=== PATIENT | female | born 2000 | race Caucasian/White ===

== ENCOUNTER 2023-11-20 10:29 | Emergency (ER) | payer MEDICAID, SELFPAY ==
[2023-11-20 10:34] VITALS: BP 152/95; PULSE 83; RESP 19; TEMP 36.1; O2SAT 98; BMI 33.9
[2023-11-20 12:39] VITALS: BP 162/92; PULSE 79; RESP 20; TEMP 36.6; O2SAT 98
--- NOTE | 2023-11-20 12:39 | ED.NAVMDI ---
HPI - Nausea/Vomiting/Diarrhea General Chief complaint: Abdominal Pain Stated complaint: Vomiting blood Time Seen by Provider: 11/20/23 13:10 Source: patient Mode of arrival: ambulatory Limitations: no limitations History of Present Illness HPI Narrative: Patient is a 23-year-old female presenting to the emergency department with complaint of diarrhea since Monday. Reports 4-5 episodes daily. Has had associated nausea but was not vomiting until this morning. Reports that she vomited after brushing her teeth this morning but it was clear fluid. States that she then went to work and drank some water and ate a banana and then vomited again which was food contents. States she vomited 1 additional time and it had a coffee-ground appearance and she became concerned. Denies fevers. Denies recent antibiotic use. Denies history prior abdominal surgeries. States that she recently moved here from [place] and does not have a PCP or insurance. MD elicited complaint: nausea and vomiting Onset (ago): hour(s) Description of vomiting: food contents, watery and coffee grounds Associated nausea: Yes Associated abdominal pain: Yes Location of pain: epigastric Pain consistency: colicky Quality: other (burning) Related Data Previous Rx's ?Medication ?Instructions ?Recorded ondansetron 4 mg disintegrating 4 mg PO Q8H PRN nausea and 11/20/23 tablet vomiting #9 tabs Allergies Allergy/AdvReac Type Severity Reaction Status Date / Time No Known Allergies Allergy Verified 11/20/23 10:37 Review of Systems Review of Systems: As per HPI. Yes all other systems are reviewed and are negative Constitutional: Constitutional: Reports as per HPI Gastrointestinal: Gastrointestinal: Reports nausea PMFSH Social History Social History Advance Directives: No Advance Directives Information Provided: Yes Physical Exam Vital Signs: Vital Signs: Last Vital Signs Temp 98 F 11/20/23 12:39 Pulse 79 11/20/23 12:39 Resp 20 11/20/23 12:39 BP 162/92 H 11/20/23 12:39 Pulse Ox 98 11/20/23 12:39 O2 Del Method Room Air 11/20/23 12:39 BMI result Body Mass Index 33.9 Vital signs have been reviewed and appear to be correct. Blood pressure elevated. Heart rate normal. Respiratory rate normal. Temperature normal. Oxygen saturation normal. Const: General: cooperative, healthy appearing and no acute distress Orientation/consciousness: oriented to person, oriented to place, oriented to time and patient oriented x3 Limitations: no limitations HEENT: Head: Yes normocephalic and Yes atraumatic Ears: external ears normal General nose exam: Normal external nose present Face and sinus: Yes face symmetric Mouth: oropharynx normal and moist mucous membranes Throat: Yes uvula midline Eyes: Pupils: Equal, round and reactive pupils present Neck: Neck: Yes normal visual inspection and Yes supple Resp: Effort & Inspection: normal respiratory effort and able to speak in complete sentences Auscultation: clear to auscultation bilaterally Cardio: Rate: regular rate Rhythm: regular rhythm Heart sounds: S1 normal heart sound present and S2 normal heart sound present GI: Inspection: Yes normal to inspection Palpation (GI): Soft to palpation and Tenderness to palpation present (GI) in the epigastrum Auscultation: normoactive bowel sounds : General: Yes no CVA tenderness Back/Spine/Pelvis: Back: no CVA tenderness Skin: General skin exam: elasticity normal and turgor normal Neuro: General: oriented to person, oriented to place, oriented to time, patient oriented x3, moves all extremities, no focal motor deficits and CN's II-XI intact bilaterally Cranial nerves: Yes Equal, round and reactive pupils present Cognition (Neuro): normal cognition Extrem: General: Yes full ROM, Yes no pedal edema and Yes no calf tenderness Psych: Mental Status: mental status grossly normal Affect: normal affect Thought process: Normal thought process present Course Course Course Narrative: This is a Rapid Medical Examination (RME) performed by Leobardo Giles PA-C in triage. Full HPI, ROS, assessment and treatment plan per primary provider in the Main ED. 23 yo female presenting to the ER for evaluation of nausea, vomiting, and nonbloody diarrhea w/ abdominal pain for 3 days with new onset dark brown/bloody vomit that started today. 8/10 abd pain in the central abdomen. VSS in triage. Plan: lab workup Medications Administered Discontinued Medications Generic Name Dose Route Start Last Admin Trade Name Freq PRN Reason Stop Dose Admin Famotidine 20 mg 11/20/23 13:25 11/20/23 14:44 Famotidine/Pf 20 Mg/2 Ml Vial IVPUSH 11/20/23 13:26 20 mg ONCE ONE Administration Sodium Chloride 1,000 mls @ 999 mls/hr 11/20/23 13:30 11/20/23 14:09 Ns IV 11/20/23 14:30 999 mls/hr .Q1H1M SCAR Administration Ondansetron HCl 4 mg 11/20/23 13:25 11/20/23 14:44 Ondansetron Hcl 4 Mg/2 Ml Vial IVPUSH 11/20/23 13:26 4 mg ONCE ONE Administration Medical Decision Making Medical Decision Making [facility] Narrative: Patient is a 23-year-old female presenting to the emergency department with complaint of diarrhea since Monday. On exam patient is awake, A+Ox3, BP elevated, VS otherwise WNL, afebrile, normal neurological exam without focal deficits, physical exam findings as above. Given reported symptoms and physical exam findings, initial differential includes gastritis, PUD, Hafsa-Munguia tear. Labs notable for mild leukocytosis, no anemia, no electrolyte abnormalities, no evidence of TESS, negative HCG. No evidence of infection on urinalysis. Results discussed with patient and all questions answered. Patient reports good relief of nausea with medications given but complains of ongoing epigastric burning. Will give patient Maalox with lidocaine in the ED. Will send prescription for Zofran to the pharmacy and advised patient she can use [id number] Maalox for her symptoms. Will refer to GI for any ongoing symptoms. Patient provided with resources for establishing care with a primary care provider this area. Return precautions discussed at bedside. Patient verbalized understanding of and agreement with plan. Differential Diagnosis Differential Diagnoses: The differential diagnosis associated with the presentation includes As per [facility]. Admission/Observation Consideration of admission/observation: Escalation of care including admission/observation considered Patient would have been admitted to the hospital had their work up had any findings where hospital admission was appropriate and their clinical presentation warranted hospital admission. Lab Data [facility] Lab Attestation statement: I reviewed the patient's lab results. As per [facility]. 11/20/23 14:07 11/20/23 14:07 Labs: Lab Results 11/20/23 Range/Units 14:07 WBC 13.1 H (4.8-10.8) X10*3/uL RBC 4.93 (4.20-5.50) X10*6/uL Hgb 14.5 (12.0-16.0) g/dl Hct 41.8 (37.0-47.0) % MCV 84.8 (80.0-98.0) fL MCH 29.4 (27.0-33.0) pg MCHC 34.7 (31.0-35.0) g/dl RDW 11.4 (11.0-16.0) % Plt Count 241 (160-400) X10*3/uL MPV 11.1 (9.4-12.3) fL Immature Gran % (Auto) 1.2 H (0.0-0.4) % Neut % (Auto) 81.4 H (45-73) % Lymph % (Auto) 10.2 L (20-40) % [place] % (Auto) 6.3 (2-11) % Eos % (Auto) 0.2 (0-4) % Baso % (Auto) 0.7 (0-2) % Lymph # (Auto) 1.3 (1.2-4.9) X10*3/uL [place] # (Auto) 0.8 (0.1-1.2) X10*3/uL Eos # (Auto) 0.0 (0.0-0.4) X10*3/uL Baso # (Auto) 0.1 (0.0-0.2) X10*3/uL Abs Immat Gran (auto) 0.16 H (0.00-0.03) X10*3/uL Absolute Neuts (auto) 10.7 H (2.0-8.3) x10*3/uL Absolute Nucleated RBC 0.000 (0.0-0.012) X10*3/uL Nucleated RBC % (auto) 0.0 (0.0-0.2) /100WBC Sodium 143 (135-145) mmol/L Potassium 3.8 (3.3-5.1) mmol/L Chloride 106 (96-108) mmol/L Carbon Dioxide 25 (22-29) mmol/L Anion Gap 16 (12-20) BUN 10 (9-16) mg/dL Creatinine 0.73 (0.5-1.4) mg/dL Estim Creat Clear Calc 170.9 Estimated GFR > 60 Random Glucose 90 (60-115) mg/dL Calcium 9.4 (8.4-10.2) mg/dL Magnesium 1.8 (1.6-2.6) mg/dL Total Bilirubin 0.4 (0.0-1.0) mg/dL Direct Bilirubin 0.1 (0.0-0.5) mg/dL AST 19 (5-31) U/L ALT 22 (0-31) U/L Alkaline Phosphatase 79 (39-117) U/L Total Protein 8.1 H (6.5-8.0) g/dL Albumin 4.3 (3.5-5.0) g/dL Lipase 18 (8-78) U/L Beta HCG, Quant < 2 mIU/mL Urine Color Yellow Urine Appearance Cloudy Urine pH 5.5 (5.0-9.0) Ur Specific [place] 1.025 (1.005-1.025) Urine Protein Negative (Neg-Trace) mg/dL Urine Glucose (UA) Negative (Negative) mg/dL Urine Ketones Trace (Negative) mg/dL Urine Blood Negative (Negative) Urine Nitrite Negative (Negative) Ur Leukocyte Esterase Negative (Negative) External Record Review External record reviewed: Inpatient record, Office record and Outpatient record Prescription Management I considered prescription management with: Other Discharge Plan Discharge Clinical Impression: Gastritis Patient Disposition: Home, Self-Care Instructions: Gastritis (DC), Diet for Stomach Ulcers and Gastritis (ED) Additional Instructions: You were evaluated in the emergency department today for epigastric pain, nausea, vomiting, and diarrhea which is most likely due to irritation of the lining of your stomach. Your symptoms improved with medication in the ED. You can use Mylanta, which is available over the counter, to help manage your symptoms. You are also being prescribed ondansetron which you can use every 8 hours as needed for nausea. You should stick to clear fluids for the rest of the day today. Tomorrow, if your symptoms have improved you can progress to a bland diet. You can continue to progress back to your regular diet as tolerated after that. Avoid spicy, fatty or acidic foods as well as alcohol. You were provided with resources for establishing care with a primary care provider in the emergency department. You are being referred to the stockbroker for any ongoing symptoms. Return to the emergency department if you experience shortness of breath, worsening or uncontrolled abdominal pain, chest pain, light headedness, fainting, persistent nausea and vomiting, bloody vomit or stools, black, tarry stools, or any other concerning symptoms. Prescriptions: New ondansetron 4 mg tablet,disintegrating 4 mg PO Q8H PRN (Reason: nausea and vomiting) Qty: 9 0RF Referrals: [facility] [Provider Group] Stand Alone Forms: Work/School Release Print Language: Azeri
[2023-11-20] MEDS: 0.9 % Sodium Chloride 1,000 ML 999 ML IV (14:09)
[2023-11-20 14:20] LABS: MANUAL DIFF FLAG NO
[2023-11-20 14:22] LABS: Appearance Urine Cloudy; Basophils Absolute Auto 0.1 X10*3/uL (0.0-0.2); Basophils Percent Auto 0.7 % (0-2); Color Urine Yellow; Eosinophils Percent Auto 0.2 % (0-4); Glucose Urine UA Negative (Negative); Hematocrit 41.8 % (37.0-47.0); Hemoglobin 14.5 g/dl (12.0-16.0); Imm Gran Abs Auto 0.16 X10*3/uL (0.00-0.03); Imm Gran Pct Auto 1.2 % (0.0-0.4); Leukocyte Esterase Urine Negative (Negative); Lymphocytes Absolute Auto 1.3 X10*3/uL (1.2-4.9); Lymphocytes Percent Auto 10.2 % (20-40); Mean Corpuscular HGB Conc 34.7 g/dl (31.0-35.0); Mean Corpuscular Hemoglobin 29.4 pg (27.0-33.0); Mean Corpuscular Volume 84.8 fL (80.0-98.0); Mean Platelet Volume 11.1 fL (9.4-12.3); Monocytes Absolute Auto 0.8 X10*3/uL (0.1-1.2); Monocytes Percent Auto 6.3 % (2-11); Neutrophils Absolute Auto 10.7 x10*3/uL (2.0-8.3); Neutrophils Percent Auto 81.4 % (45-73); Nitrite Urine Negative (Negative); PH 5.5 (5.0-9.0); Platelet Count 241 X10*3/uL (160-400); Red Blood Count 4.93 X10*6/uL (4.20-5.50); Red Cell Distribution Width 11.4 % (11.0-16.0); Specific Gravity - Urine 1.025 (1.005-1.025); Urine Blood Negative (Negative); Urine Ketones Trace mg/dL (Negative); Urine Protein Negative (Neg-Trace); White Blood Count 13.1 X10*3/uL (4.8-10.8)
[2023-11-20 14:36] LABS: Anion Gap 16 (12-20); Blood Urea Nitrogen 10 mg/dL (9-16); Calcium 9.4 mg/dL (8.4-10.2); Carbon Dioxide 25 mmol/L (22-29); Chloride 106 mmol/L (96-108); Creatinine Clr Calc Pharmacy 170.9; Estimated Glomerular Filt Rate > 60; Glucose Random 90 mg/dL (60-115); Potassium 3.8 mmol/L (3.3-5.1); Sodium 143 mmol/L (135-145)
[2023-11-20 14:37] LABS: Alanine Aminotransferase 22 U/L (0-31); Albumin Level 4.3 g/dL (3.5-5.0); Alkaline Phosphatase 79 U/L (39-117); Aspartate Amino Transferase 19 U/L (5-31); Bilirubin Direct 0.1 mg/dL (0.0-0.5); Bilirubin Total 0.4 mg/dL (0.0-1.0); Lipase 18 U/L (8-78); Magnesium 1.8 mg/dL (1.6-2.6); Total Protein 8.1 g/dL (6.5-8.0)
[2023-11-20] MEDS: ondansetron HCL 4 MG/2 ML VIAL IVPUSH (14:44)
[2023-11-20] MEDS: Famotidine/PF 20 MG/2 ML VIAL IVPUSH (14:44)
[2023-11-20 14:45] LABS: HCG Quantitative < 2 mIU/mL
[2023-11-20] MEDS: Magnesium Hydrox/Alum Hydrox 30 ML ORAL.SUSP 15 ML PO (15:22)
[2023-11-20] MEDS: Lidocaine HCl Viscous 2 % 15 ML SOLUTION 5 ML MUCOUS MEM (15:23)
[2023-11-20 15:28] VITALS: BP 141/89; PULSE 78; RESP 16; TEMP 36.8; O2SAT 100
== END 2023-11-20 15:29 | disposition home or self-care (01) ==
PROVIDERS: Physician Assistant; Registered Nurse Emergency; Emergency Provider Emergency Medicine
DX: K29.70 Gastritis, unspecified, without bleeding (principal); R11.2 Nausea with vomiting, unspecified; R10.13 Epigastric pain; Z79.899 Other long term (current) drug therapy
CPT/HCPCS: 36415; 80048; 80076; 81003; 83690; 83735; 84702; 85025; 96361; 96374; 96375; 99283; 99284; J2405

== ENCOUNTER 2023-12-27 12:42 | Emergency (ER) | payer OTHER, SELFPAY ==
[2023-12-27 12:47] VITALS: BP 158/93; PULSE 95; RESP 18; TEMP 37.1; O2SAT 97; BMI 33.6
--- NOTE | 2023-12-27 12:47 | ED.GENADULT ---
HPI - General Adult General Chief complaint: Nausea/Vomiting/Diarrhea Stated complaint: vomiting diarrhea Time Seen by Provider: 12/27/23 13:46 Source: patient Mode of arrival: ambulatory Limitations: no limitations History of Present Illness ED Provider: ZHANE WILSON narrative: 23 yo female no PMH went to family gathering over the weekend and multiple family members developed viral GI illness. She thought she was getting better yesterday but this AM n/v and diarrhea persisted and she is just not feeling better. No travel or abx use. No fevers. MD complaint: GI illness Onset (ago): day(s) (Monday) Location: abdomen Radiation: non-radiation Severity: mild Quality: aching Pain Consistency: intermittent Relieving factors: none Exacerbating factors: eating and movement Associated symptoms: loss of appetite, malaise, nausea/vomiting and other (myalgias) Treatments prior to arrival: none Related Data Previous Rx's ?Medication ?Instructions ?Recorded ondansetron 4 mg disintegrating 4 mg PO Q8H PRN nausea and 11/20/23 tablet vomiting #9 tabs famotidine 20 mg tablet (Pepcid) 20 mg PO DAILY PRN abdominal 12/27/23 discomfort #30 tabs ondansetron 4 mg disintegrating 4 mg PO Q8H PRN nausea and 12/27/23 tablet vomiting #20 tabs Allergies Allergy/AdvReac Type Severity Reaction Status Date / Time No Known Allergies Allergy Verified 12/27/23 12:50 Review of Systems Review of Systems: Constitutional : No Weight loss, No Fever, No Chills ENT/Mouth : No sore throat, No Rhinorrhea Eyes: No Swelling, No Redness Cardiovascular : No Chest Pain, No SOB, NoEdema Respiratory : No Cough, No Sputum, No Wheezing Gastrointestinal : Positive Nausea, Positive Vomiting, positive Diarrhea, positive abdominal Pain, No Hematochezia, No Melena Genitourinary : No Dysuria, No Urinary Frequency, No Hematuria, No Urgency Musculoskeletal : No joint pain, No Myalgias, No Joint Swelling Skin : No Skin Lesions, No rash Neuro : No Weakness, No Numbness, No Dizziness, No Headache All other systems reviewed and are negative. [facility], [facility] Past Medical History Attestation statement: The following information was validated with the patient. Source: old records reviewed Medical History (Updated 12/27/23 @ 15:04 by Barb Vinson DO) No pertinent past medical history Social History Social History Smoked in Last 30 Days: Yes Use of substances other than those prescribed or required for medical reasons: Yes Substance Use Type: Marijuana Substance Use Type Other:: THC Substance Use Frequency: Daily Last Used Substance: Days (ago) Advance Directives: No Advance Directives Information Provided: Yes Patient : No Physical Exam ED Vital Signs: Vital Signs - 24 hr 12/27/23 12:47 12/27/23 13:57 12/27/23 14:05 Temperature 98.7 F 98.3 F 98.4 F Pulse Rate 95 81 87 Respiratory Rate 18 17 14 Blood Pressure 158/93 H 155/93 H 151/92 H Pulse Oximetry 97 98 95 Oxygen Delivery Method Room Air Room Air Room Air BMI result Body Mass Index 33.6 Appearance: Alert. Oriented X3. No acute distress. Eyes: Pupils equal, round and reactive to light. ENT: Pharynx mild dry MM Neck: Normal inspection. Neck supple. CVS: Normal heart rate and rhythm. Pulses normal. Respiratory: No respiratory distress. Breath sounds normal. Abdomen: Soft and mild diffuse ttp no rebound or guarding Skin: Skin warm and dry. Normal skin color. Normal skin turgor. Extremities: No lower extremity edema. No calf ttp Neuro: Oriented X 3. No motor deficit. No sensory deficit. Course Course Course Narrative: This is an RME done by FERMIN Edmonds: Additional HPI, ROS, PE not included below will be deferred to primary provider. 23 yo f hx of obseity presents w/ n,v, diarrhea since monday multiple sick contacts with same sx Appearance: Alert.? Oriented X3.? No acute cardiopulmonary distress distress.? Head: Normocephalic, atraumatic, no step-offs or deformities Neck: Normal inspection.? Neck supple.? CVS: Pulses normal.? Respiratory: No respiratory distress.? Abdomen: Soft and nontender.? Skin: ? Normal skin color. Extremities: 5/5 strength to bilateral upper and lower extremities Neuro: Oriented X 3.? No motor deficit.? No sensory deficit. Medications Administered Discontinued Medications Generic Name Dose Route Start Last Admin Trade Name Freq PRN Reason Stop Dose Admin Famotidine 20 mg 12/27/23 13:52 12/27/23 14:50 Famotidine/Pf 20 Mg/2 Ml Vial IVPUSH 12/27/23 13:53 20 mg ONCE ONE Administration Sodium Chloride 1,000 mls @ 999 mls/hr 12/27/23 13:52 12/27/23 14:50 Ns IV 12/27/23 14:52 999 mls/hr .Q1H1M ONE Administration Sodium Chloride 1,000 mls @ 999 mls/hr 12/27/23 13:52 12/27/23 15:14 Ns IV 12/27/23 14:52 999 mls/hr .Q1H1M ONE Administration Ondansetron HCl 4 mg 12/27/23 13:52 12/27/23 14:50 Ondansetron Hcl 4 Mg/2 Ml Vial IVPUSH 12/27/23 13:53 4 mg ONCE ONE Administration Medical Decision Making Medical Decision Making [facility] Narrative: 23 yo female with no sig PMH went to gathering over the weekend then developed persistent intermittent n/v/d abdominal cramps and not feeling well at this time labs, IVF x 2L, nausea meds and pepcid. Stool study. Her exam is overall benign. She is immunocompetent this should be self limiting. Differential Diagnosis Differential Diagnoses: The differential diagnosis associated with the presentation includes viral syndrome, dehdyration, enteritis Admission/Observation Consideration of admission/observation: Escalation of care including admission/observation considered feels much better able to tolerate PO Lab Data [facility] Lab Attestation statement: I reviewed the patient's lab results. 12/27/23 13:27 12/27/23 13:27 Labs: Lab Results 12/27/23 12/27/23 Range/Units 13:27 14:43 WBC 13.9 H (4.8-10.8) X10*3/uL RBC 5.11 (4.20-5.50) X10*6/uL Hgb 14.9 (12.0-16.0) g/dl Hct 43.5 (37.0-47.0) % MCV 85.1 (80.0-98.0) fL MCH 29.2 (27.0-33.0) pg MCHC 34.3 (31.0-35.0) g/dl RDW 11.9 (11.0-16.0) % Plt Count 250 (160-400) X10*3/uL MPV 10.7 (9.4-12.3) fL Immature Gran % (Auto) 1.1 H (0.0-0.4) % Neut % (Auto) 85.1 H (45-73) % Lymph % (Auto) 6.7 L (20-40) % [place] % (Auto) 5.9 (2-11) % Eos % (Auto) 0.8 (0-4) % Baso % (Auto) 0.4 (0-2) % Lymph # (Auto) 0.9 L (1.2-4.9) X10*3/uL [place] # (Auto) 0.8 (0.1-1.2) X10*3/uL Eos # (Auto) 0.1 (0.0-0.4) X10*3/uL Baso # (Auto) 0.1 (0.0-0.2) X10*3/uL Abs Immat Gran (auto) 0.15 H (0.00-0.03) X10*3/uL Absolute Neuts (auto) 11.9 H (2.0-8.3) x10*3/uL Absolute Nucleated RBC 0.000 (0.0-0.012) X10*3/uL Nucleated RBC % (auto) 0.0 (0.0-0.2) /100WBC Sodium 143 (135-145) mmol/L Potassium 4.2 (3.3-5.1) mmol/L Chloride 109 H (96-108) mmol/L Carbon Dioxide 28 (22-29) mmol/L Anion Gap 10 L (12-20) BUN 12 (9-16) mg/dL Creatinine 0.78 (0.5-1.4) mg/dL Estim Creat Clear Calc 159.3 Estimated GFR > 60 Random Glucose 95 (60-115) mg/dL Calcium 9.5 (8.4-10.2) mg/dL Magnesium 1.8 (1.6-2.6) mg/dL Total Bilirubin 0.6 (0.0-1.0) mg/dL AST 18 (5-31) U/L ALT 29 (0-31) U/L Alkaline Phosphatase 79 (39-117) U/L Total Protein 8.3 H (6.5-8.0) g/dL Albumin 4.6 (3.5-5.0) g/dL Lipase 20 (8-78) U/L Beta HCG, Quant < 2 mIU/mL Urine Color Yellow Urine Appearance Clear Urine pH 6.0 (5.0-9.0) Ur Specific [place] 1.025 (1.005-1.025) Urine Protein Negative (Neg-Trace) mg/dL Urine Glucose (UA) Negative (Negative) mg/dL Urine Ketones Trace (Negative) mg/dL Urine Blood Negative (Negative) Urine Nitrite Negative (Negative) Ur Leukocyte Esterase Negative (Negative) Influenza Type A (PCR) NEGATIVE (Negative) Influenza Type B (PCR) NEGATIVE (Negative) RSV RNA Qual (PCR) NEGATIVE (Negative) SARS-CoV-2 RNA (RT-PCR) NEGATIVE (Negative) Independent Historian Clinical information obtained from an independent historian. History obtained from or confirmed by: Spouse Prescription Management I considered prescription management with: Other Discharge Plan Discharge Clinical Impression: Nausea vomiting and diarrhea Patient Disposition: Home, Self-Care Instructions: Acute Nausea and Vomiting (ED), Acute Diarrhea (ED), Nutrition Tips for Relief of Diarrhea (ED) Additional Instructions: bland diet and lots of liquids for the next 48 hours avoid dairy for the next 3 days then you can add it in slowly return for worsening symptoms, fevers, bloody stools or any other concerns stay out of the heat and stay hydrated tylenol is okay for pain or fevers but avoid motrin/ibuprofen/aleve/naprosyn/aspirin for the next 2 weeks Prescriptions: New ondansetron 4 mg tablet,disintegrating 4 mg PO Q8H PRN (Reason: nausea and vomiting) Qty: 20 0RF famotidine [Pepcid] 20 mg tablet 20 mg PO DAILY PRN (Reason: abdominal discomfort) Qty: 30 0RF No Action ondansetron 4 mg tablet,disintegrating 4 mg PO Q8H PRN (Reason: nausea and vomiting) Qty: 9 0RF Stand Alone Forms: Work/School Release Print Language: Polish
[2023-12-27 13:34] LABS: MANUAL DIFF FLAG NO
[2023-12-27 13:46] LABS: Basophils Absolute Auto 0.1 X10*3/uL (0.0-0.2); Basophils Percent Auto 0.4 % (0-2); Eosinophils Absolute Auto 0.1 X10*3/uL (0.0-0.4); Eosinophils Percent Auto 0.8 % (0-4); Hematocrit 43.5 % (37.0-47.0); Hemoglobin 14.9 g/dl (12.0-16.0); Imm Gran Abs Auto 0.15 X10*3/uL (0.00-0.03); Imm Gran Pct Auto 1.1 % (0.0-0.4); Lymphocytes Absolute Auto 0.9 X10*3/uL (1.2-4.9); Lymphocytes Percent Auto 6.7 % (20-40); Mean Corpuscular HGB Conc 34.3 g/dl (31.0-35.0); Mean Corpuscular Hemoglobin 29.2 pg (27.0-33.0); Mean Corpuscular Volume 85.1 fL (80.0-98.0); Mean Platelet Volume 10.7 fL (9.4-12.3); Monocytes Absolute Auto 0.8 X10*3/uL (0.1-1.2); Monocytes Percent Auto 5.9 % (2-11); Neutrophils Absolute Auto 11.9 x10*3/uL (2.0-8.3); Neutrophils Percent Auto 85.1 % (45-73); Platelet Count 250 X10*3/uL (160-400); Red Blood Count 5.11 X10*6/uL (4.20-5.50); Red Cell Distribution Width 11.9 % (11.0-16.0); White Blood Count 13.9 X10*3/uL (4.8-10.8)
[2023-12-27 13:57] VITALS: BP 155/93; PULSE 81; RESP 17; TEMP 36.8; O2SAT 98
[2023-12-27 14:00] LABS: Alanine Aminotransferase 29 U/L (0-31); Albumin Level 4.6 g/dL (3.5-5.0); Alkaline Phosphatase 79 U/L (39-117); Anion Gap 10 (12-20); Aspartate Amino Transferase 18 U/L (5-31); Bilirubin Total 0.6 mg/dL (0.0-1.0); Blood Urea Nitrogen 12 mg/dL (9-16); Calcium 9.5 mg/dL (8.4-10.2); Carbon Dioxide 28 mmol/L (22-29); Chloride 109 mmol/L (96-108); Creatinine Clr Calc Pharmacy 159.3; Estimated Glomerular Filt Rate > 60; Glucose Random 95 mg/dL (60-115); Lipase 20 U/L (8-78); Magnesium 1.8 mg/dL (1.6-2.6); Potassium 4.2 mmol/L (3.3-5.1); Sodium 143 mmol/L (135-145); Total Protein 8.3 g/dL (6.5-8.0)
[2023-12-27 14:05] VITALS: BP 151/92; PULSE 87; RESP 14; TEMP 36.9; O2SAT 95
[2023-12-27 14:05] LABS: HCG Quantitative < 2 mIU/mL
[2023-12-27 14:17] LABS: Influenza A PCR NEGATIVE (Negative); Influenza B PCR NEGATIVE (Negative); Resp Syncy Virus RNA Qual PCR NEGATIVE (Negative); SARS COV2 PCR INHOUSE NEGATIVE (Negative)
[2023-12-27] MEDS: Famotidine/PF 20 MG/2 ML VIAL IVPUSH (14:50)
[2023-12-27] MEDS: 0.9 % Sodium Chloride 1,000 ML 999 ML IV ×2 (14:50→15:14)
[2023-12-27] MEDS: ondansetron HCL 4 MG/2 ML VIAL IVPUSH (14:50)
[2023-12-27 15:13] LABS: Appearance Urine Clear; Color Urine Yellow; Glucose Urine UA Negative (Negative); Leukocyte Esterase Urine Negative (Negative); Nitrite Urine Negative (Negative); Specific Gravity - Urine 1.025 (1.005-1.025); Urine Blood Negative (Negative); Urine Ketones Trace mg/dL (Negative); Urine Protein Negative (Neg-Trace)
[2023-12-27] MEDS: Lidocaine HCl Viscous 2 % 15 ML SOLUTION MUCOUS MEM (16:08)
[2023-12-27] MEDS: Magnesium Hydrox/Alum Hydrox 30 ML ORAL.SUSP 15 ML PO (16:08)
[2023-12-27 16:19] VITALS: BP 151/92; PULSE 87; RESP 14; TEMP 36.9; O2SAT 95
== END 2023-12-27 16:21 | disposition home or self-care (01) ==
PROVIDERS: Physician Assistant; Emergency Provider Emergency Medicine
DX: R11.2 Nausea with vomiting, unspecified (principal); R19.7 Diarrhea, unspecified; M79.10 Myalgia, unspecified site; Z03.818 Encounter for observation for suspected exposure to other biological agents ruled out; Z79.899 Other long term (current) drug therapy
CPT/HCPCS: 0241U; 80053; 81003; 83690; 83735; 84702; 85025; 96361; 96374; 96375; 99284; J2405

== ENCOUNTER 2024-08-29 18:30 | Emergency (ER) | payer OTHER, SELFPAY ==
--- NOTE | ~2024-08-29 | XR_ITS ---
CLINICAL HISTORY: ?irregularity on xray 3 view left elbow Comparison: None Findings: Acute intra-articular fracture of the head of the radius with mild volar accentuated into the neck demonstrated on the lateral image. No dislocation. Soft tissue swelling with large effusion. No radiopaque foreign body. IMPRESSION: 1. Acute intra-articular fracture of the radial head. 2. Large effusion of the left elbow. This document has been electronically signed by: Feroz Espana MD on 08/29/2024 21:22:01
--- NOTE | ~2024-08-29 | XR_ITS ---
CLINICAL HISTORY: slip and fall Radiographs of the left hand/wrist, 3 views Comparison: None Findings: No fracture or dislocation. The joint spaces are preserved without osteophytosis. Bone mineralization is normal. Soft tissue swelling. Impression: No fracture. This document has been electronically signed by: Sandy Prakash MD on 08/29/2024 20:14:29
--- NOTE | ~2024-08-29 | XR_ITS ---
CLINICAL HISTORY: fall, tenderness Radiographs of the left forearm, 2 views Comparison: None Findings: Questionable lucency without cortical irregularity in the radial head. No dislocation. The joint spaces are preserved without osteophytosis. Bone mineralization is normal. Soft tissue swelling. Impression: Questionable lucency without cortical irregularity in the radial head may indicate a nondisplaced fracture or be secondary to artifact. Consider dedicated radiographs of the elbow. This document has been electronically signed by: Sandy Prakash MD on 08/29/2024 20:10:26
--- NOTE | ~2024-08-29 | XR_ITS ---
CLINICAL HISTORY: slip and fell, diffuse pain Radiographs of the left humerus, 2 views, 4 images Comparison: None Findings: No fracture or dislocation. The joint spaces are preserved without osteophytosis. Bone mineralization is normal. Soft tissue swelling. Impression: No fracture. This document has been electronically signed by: Sandy Prakash MD on 08/29/2024 19:49:59
[2024-08-29 19:16] VITALS: BP 142/83; PULSE 107; RESP 20; TEMP 37; O2SAT 98; BMI 31.7
--- NOTE | 2024-08-29 19:17 | ED.GENADULT ---
HPI - General Adult General Chief complaint: Fall Stated complaint: left side shoulder, elbow, arm and hand fall injur Time Seen by Provider: 08/29/24 21:27 Source: patient and RN notes reviewed Mode of arrival: ambulatory Limitations: no limitations History of Present Illness ED Provider: Yola Vance PA-C HPI narrative: This is a 23-year-old female, with a history of anxiety, who presents emergency department with complaints of left elbow pain status post slip and fall which occurred this afternoon. Patient reports that she accidentally slipped and fell directly onto her left elbow. Patient denies hitting her head or LOC. She is unsure when her last tetanus shot was. She took ibuprofen for her symptoms which provided her with some relief. She is right-hand dominant. No other complaints or concerns at this time. MD complaint: Elbow pain Onset (ago): day(s) Severity: moderate Quality: aching Pain Consistency: constant Relieving factors: immobilization Exacerbating factors: movement Associated symptoms: denies other symptoms Treatments prior to arrival: none Related Data Previous Rx's ?Medication ?Instructions ?Recorded ondansetron 4 mg disintegrating 4 mg PO Q8H PRN nausea and 11/20/23 tablet vomiting #9 tabs famotidine 20 mg tablet (Pepcid) 20 mg PO DAILY PRN abdominal 12/27/23 discomfort #30 tabs ondansetron 4 mg disintegrating 4 mg PO Q8H PRN nausea and 12/27/23 tablet vomiting #20 tabs acetaminophen 500 mg tablet 500 - 1,000 mg (1 - 2 x 500 mg) PO 08/29/24 (Tylenol Extra Strength) QID PRN pain #30 tabs ibuprofen 600 mg tablet 600 mg PO Q6H PRN pain #30 tabs 08/29/24 morphine 15 mg immediate release 15 mg PO Q6H PRN pain, severe 1 08/29/24 tablet week #10 tabs Allergies Allergy/AdvReac Type Severity Reaction Status Date / Time No Known Allergies Allergy Verified 08/29/24 19:18 Review of Systems Review of Systems: Yes all other systems are reviewed and are negative [facility] Past Medical History Medical History (Updated 08/29/24 @ 21:52 by FERMIN Rey) No pertinent past medical history Social History Social History Smoked in Last 30 Days: No Substance Use Type: Marijuana Substance Use Frequency: Daily Last Used Substance: Just Prior to Admission Advance Directives: No Advance Directives Information Provided: Yes Patient : No Physical Exam ED Vital Signs: Vital Signs - 24 hr 08/29/24 19:16 Temperature 98.6 F Pulse Rate 107 H Respiratory Rate 20 Blood Pressure 142/83 H Pulse Oximetry 98 Oxygen Delivery Method Room Air BMI result Body Mass Index 31.7 Const Other: General: Awake, alert, and oriented X3. No acute distress. Head is normocephalic, atraumatic HEENT: Normal inspection CVS: Normal heart rate and rhythm. Pulses normal. Respiratory: No respiratory distress Skin: Warm, dry, no rashes noted to exposed skin. Normal skin color. Normal skin turgor. Extremities: Left elbow, with superficial abrasion noted to the posterior aspect. Patient has tenderness palpation along the medial and lateral olecranon. She does also have tenderness to palpation along her distal radius, no snuffbox tenderness. No open fracture. Strong radial pulse. Capillary refill less than 2 seconds. Neuro: Oriented X 3. No motor deficit. No sensory deficit. Course Course Course Narrative: This is a rapid medical exam performed by Yojana Teague NP: Additional HPI, ROS, PE not included below will be deferred to primary provider. Patient is a 23-year-old right hand dominant female presenting to the ED with complaint of left arm pain after slip and fall on ice. Pain to thumb, forearm, elbow. Plan: xray Medical Decision Making Medical Decision Making MDM Narrative: This is a 23-year-old female who presents emergency department for evaluation of left elbow pain status post slip and fall which occurred this afternoon. On arrival, patient mildly hypertensive at 142/83, pulse 107, likely secondary to pain. Denies head strike or LOC. X-rays performed, revealing a radial head fracture. Discussed findings with patient. Will medicate with Tylenol and morphine in department. She will follow-up with the energy conservation specialist. She was placed in sling. Given strict return precautions. Given slight superficial abrasion noted to her elbow, will administer tetanus as she is unsure when her last tetanus shot was. Denies head strike or LOC. She has no headache, dizziness, blurred vision. She is not on anticoagulation therefore CT head and neck not indicated at this time. Will place patient in sling. Differential Diagnosis Differential Diagnoses: The differential diagnosis associated with the presentation includes Radial head fracture, contusion, sprain, strain Radiology Impression Discussion of test interpretation with radiology: I have reviewed the radiologist's reading. Radiologist Impression: Findings: Acute intra-articular fracture of the head of the radius with mild volar accentuated into the neck demonstrated on the lateral image. No dislocation. Soft tissue swelling with large effusion. No radiopaque foreign body. IMPRESSION: 1. Acute intra-articular fracture of the radial head. 2. Large effusion of the left elbow. This document has been electronically signed by: Feroz Espana MD on 08/29/2024 21:22:01 Dictated By: Feroz Espana MD CLINICAL HISTORY: slip and fall Radiographs of the left hand/wrist, 3 views Comparison: None Findings: No fracture or dislocation. The joint spaces are preserved without osteophytosis. Bone mineralization is normal. Soft tissue swelling. Impression: No fracture. This document has been electronically signed by: Sandy Prakash MD on 08/29/2024 20:14:29 CLINICAL HISTORY: fall, tenderness Radiographs of the left forearm, 2 views Comparison: None Findings: Questionable lucency without cortical irregularity in the radial head. No dislocation. The joint spaces are preserved without osteophytosis. Bone mineralization is normal. Soft tissue swelling. Impression: Questionable lucency without cortical irregularity in the radial head may indicate a nondisplaced fracture or be secondary to artifact. Consider dedicated radiographs of the elbow. This document has been electronically signed by: Sandy Prakash MD on 08/29/2024 20:10:26 [place] [id number] XRay Report Signed Patient: Marci Duque MR#: [id number] : 2000 Acct:[id number] Age/Sex: 23 / F ADM Date: 08/29/24 Loc: HO.ED Attending Dr: Ordering Physician: Yelena Teague NP Date of Service: 08/29/24 Procedure(s): XR humerus LT Accession Number(s): [id number] cc: Irene Rodarte MD; Yelena Teague NP~ CLINICAL HISTORY: slip and fell, diffuse pain Radiographs of the left humerus, 2 views, 4 images Comparison: None Findings: No fracture or dislocation. The joint spaces are preserved without osteophytosis. Bone mineralization is normal. Soft tissue swelling. Impression: No fracture. This document has been electronically signed by: Sandy Prakash MD on 08/29/2024 19:49:59 Dictated By: Sandy Murphy MD Signed By: <Electronically signed by Sandy Murphy MD in OV> Discharge Plan Discharge Clinical Impression: Fracture of head of left radius Patient Disposition: Still a Patient Instructions: Elbow Fracture (ED) Additional Instructions: You were seen in the emergency department due to a slip and fall. Your x-ray show a radial head fracture. Please stay in sling until you follow-up with the energy conservation specialist, call tomorrow to make an appointment. Ice the area for pain relief. Alternate between ibuprofen and or Tylenol as needed for pain and symptoms. Morphine as a strong narcotic pain medication, please take this for severe pain only. Please be advised that this can cause drowsiness. Do not drink alcohol or drive while taking this medication. Please also be advised that this is an addictive medication and should only be reserved for severe pain only. This can also cause constipation, please increase fiber and take laxatives as needed. If any new or worsening symptoms occur including but not limited to worsening pain, chest pain, shortness of breath, severe headache, dizziness, please seek emergent care. Prescriptions: New ibuprofen 600 mg tablet 600 mg PO Q6H PRN (Reason: pain) Qty: 30 0RF acetaminophen [Tylenol Extra Strength] 500 mg tablet 500 - 1,000 mg PO QID PRN (Reason: pain) Qty: 30 0RF morphine 15 mg tablet 15 mg PO Q6H PRN (Reason: pain, severe) 7 Days Qty: 10 0RF Rx Instructions: Partial Fill upon patient request. No Action ondansetron 4 mg tablet,disintegrating 4 mg PO Q8H PRN (Reason: nausea and vomiting) Qty: 9 0RF ondansetron 4 mg tablet,disintegrating 4 mg PO Q8H PRN (Reason: nausea and vomiting) Qty: 20 0RF famotidine [Pepcid] 20 mg tablet 20 mg PO DAILY PRN (Reason: abdominal discomfort) Qty: 30 0RF Referrals: [facility] [Provider Group] Print Language: Thai
[2024-08-29] MEDS: Acetaminophen 325 MG TABLET 975 MG PO (21:56)
[2024-08-29] MEDS: Morphine Sulfate Immed Release 15 MG TABLET PO (21:56)
[2024-08-29] MEDS: Diphth,Pertus(ACell),Tet Adult 0.5 ML SYRINGE IM (21:57)
[2024-08-29] MEDS: Bacitracin Oint 0.9 GM PACKET 1 APPL TOPICAL (22:01)
[2024-08-29 22:08] VITALS: BP 152/88; PULSE 82; RESP 18; TEMP 37.2; O2SAT 99
[2024-08-29 22:20] VITALS: BP 152/88; PULSE 82; RESP 18; TEMP 37.2; O2SAT 99
== END 2024-08-29 22:21 | disposition home or self-care (01) ==
PROVIDERS: Emergency Provider Internal Medicine; PCP Internal Medicine
DX: S52.122A Displaced fracture of head of left radius, initial encounter for closed fracture (principal); S50.312A Abrasion of left elbow, initial encounter; M79.602 Pain in left arm; M25.532 Pain in left wrist; W01.0XXA Fall on same level from slipping, tripping and stumbling without subsequent striking against object, initial encounter; Y93.9 Activity, unspecified; Y92.89 Other specified places as the place of occurrence of the external cause; Y99.8 Other external cause status; Z23 Encounter for immunization
CPT/HCPCS: 73060; 73080; 73090; 73110; 73130; 90471; 90715; 99284

== ENCOUNTER → 2024-08-29 19:19 | Outpatient (BNV) | payer OTHER, SELFPAY | PROVIDERS: PCP Internal Medicine; Visit Provider Radiology Diagnostic Radiology | DX: S69.92XA Unspecified injury of left wrist, hand and finger(s), initial encounter (principal); S52.122A Displaced fracture of head of left radius, initial encounter for closed fracture; M25.512 Pain in left shoulder | CPT/HCPCS: 73060; 73080; 73090; 73110; 73130 ==

== ENCOUNTER 2024-09-02 12:59 | Outpatient (AMB) | payer OTHER, SELFPAY ==
--- NOTE | 2024-09-02 13:03 | MHC.OFFVIS ---
Vital Signs 09/02/24 13:10 Height 6 ft 1 in Weight 240 lb BMI 31.7 Handedness Right Intake Visit Reasons: FC-Fracture of head of left elbow-DOI 08/29/24 Intake Note: Marci is a 23 year old right hand dominant who presents today for a evaluation of her left elbow pain, DOI 08/29/24. Patient states she slipped and fell on ice when she feel backwards and she landed on her left arm. She states that her pain is a 9/10 on the pain scale. Patient mentions that she is unable to do pronation and supination which gives her a lot of pain on her forearm. Having off and on tingling in her left middle and ring fingers since the injury. Allergies No Known Allergies Allergy (Verified 09/02/24 13:09) HPI HPI FC-Fracture of head of left elbow-DOI 08/29/24: Details: Ms. Duque is a 23-year-old right-hand dominant female who presents to the office today for evaluation of a left elbow injury that she sustained on 08/29/2024. She reports that she slipped and fell on black ice on an outstretched hand backwards. She reports extreme pain 9/10 and has very limited motion due to pain. She also experiences occasional numbness and tingling in the left middle and ring fingers since the injury. 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 Unable to tolerate any range of motion testing. Able to roughly demonstrate about 20-30 degrees of active flexion and extension. Unable to attempt any pronation supination due to pain. Reports occasional numbness and tingling in the middle and ring fingers. Office Procedures AMB Fracture Care Fracture Billing Code: Fracture Billing Code Assessment & Plan Assessment & Plan (1) Fracture of radial head, left, closed: Code(s): S52.122A - Displaced fracture of head of left radius, initial encounter for closed fracture Category: Medical Plan Ms. Duque is a 23-year-old right-hand dominant female who presents to the office today for evaluation of a left elbow injury that she sustained on 08/29/2024. She reports that she slipped and fell on black ice on an outstretched hand backwards. She reports extreme pain 9/10 and has very limited motion due to pain. She also experiences occasional numbness and tingling in the left middle and ring fingers since the injury. While in the office today, we discussed physical therapy to work on inflammation management and gentle range of motion. She will continue alternating Tylenol and ibuprofen as needed for pain. I did fit the patient for an ultra sling without the abduction pillow while in the office today. The sling was off the shelf. No lifting pushing or pulling greater than a coffee cup or a cell phone. We did discuss that in these types of injuries it is common that the patient will lose the last 10 degrees of full extension. I do not believe this will limit her in any way. She understands and accepts. I would like to see her back in 4 weeks with repeat x-rays, sooner if needed. X-rays of the left elbow which were obtained while in the office today and were reviewed by me, Ellen Parada PA-C, revealed redemonstration radial head fracture with minimal displacement. Coding Level of Care Code New Pt Level 4 (60284) Diagnoses Fracture of radial head, left, closed S52.122A CPT Codes Fracture Care - Fracture Billing Code: Fracture Billing Code ([id number])
[2024-09-02 13:10] VITALS: BMI 31.7
== END 2024-09-02 14:13 | disposition home or self-care (01) ==
PROVIDERS: PCP Internal Medicine; Visit Provider Physician Assistant
DX: S52.122A Displaced fracture of head of left radius, initial encounter for closed fracture (principal); W00.0XXA Fall on same level due to ice and snow, initial encounter
CPT/HCPCS: 99204

== ENCOUNTER → 2024-09-02 12:59 | Outpatient (BNVA) | payer OTHER, SELFPAY | PROVIDERS: PCP Internal Medicine; Visit Provider Physician Assistant | DX: S52.122A Displaced fracture of head of left radius, initial encounter for closed fracture (principal) | CPT/HCPCS: 99202 ==

== ENCOUNTER 2024-10-01 09:02 | Outpatient (REF) | payer OTHER, SELFPAY ==
--- NOTE | ~2024-10-01 | XR_ITS ---
EXAMINATION: XR ELBOW, LEFT CLINICAL INFORMATION: M25.529 - Pain in unspecified elbow COMPARISON: 08/29/2024. TECHNIQUE: AP, lateral, and oblique views of the left elbow. FINDINGS: Redemonstration of nondisplaced radial head fracture in stable alignment. Fracture lines are somewhat blunted but are still visible. No articular step off. No additional fracture. Normal alignment. Joint spaces are preserved. No significant arthropathy. Joint effusion has largely resolved. Soft tissues appear normal. XR/XR elbow LT min 3V IMPRESSION: 1. Nondisplaced radial head fracture remains in anatomic alignment. Evidence of early healing. Electronically signed by: El Jackson MD 10/02/2024 02:13 PM EDT
== END 2024-10-01 09:03 | disposition home or self-care (01) ==
LOC: HO.HOSX 09:02
PROVIDERS: Visit Provider Physician Assistant
DX: M25.522 Pain in left elbow (principal); S52.122A Displaced fracture of head of left radius, initial encounter for closed fracture; W00.0XXA Fall on same level due to ice and snow, initial encounter; Y93.01 Activity, walking, marching and hiking; Y92.9 Unspecified place or not applicable; Y99.9 Unspecified external cause status
CPT/HCPCS: 73080; 99212

== ENCOUNTER 2024-10-01 14:13 | Outpatient (AMB) | payer OTHER, SELFPAY ==
--- NOTE | 2024-10-01 14:17 | A.OFFVIS_ITS ---
Vital Signs 10/01/24 14:37 Height 6 ft 1 in Weight 240 lb BMI 31.7 Intake Visit Reasons: OV - Left Radial Head Fx -08/29/24 XR Intake Note: Marci is a 23 year old right hand dominant female who presents today for a follow up of her Left Elbow - Radial Head Fracture DOI: 08/29/24. Patient slipped and fell on black ice fracturing her elbow. At her last appointment she was fit for an ultra-sling and was instructed to do no lifting pushing or pulling anything heavier than a cell phone. Patient is doing well and she is showing improvements with PT. She states the her left wrist is causing her pain. Patient mentions when she feel on the day of the injury she landed on her whole arm injury her writs as well. She states that her pain is on the volar aspect of the wrist and it moves up to her forearm. Patient does feel a pulling sensation when she is flexing her wrist up and down. Allergies No Known Allergies Allergy (Verified 09/02/24 13:09) HPI HPI OV - Left Radial Head Fx -08/29/24 XR: Details: Ms. Duque is a 23-year-old right-hand dominant female who presents to the office today for follow-up of a left radial head fracture. Date of injury was 08/2024 when she slipped and fell on ice landing on her left arm. At her last a ppointment on 09/02/2024 the patient was given a sling and instructed to attend occupational therapy. She has been attending occupational therapy and has noticed a great deal of improvement in her pain and range of motion. She is complaining of left wrist pain. [facility] Medical History (Updated 09/02/24 @ 14:27 by Ellen Parada PA-C) No pertinent past medical history Social History Alcohol intake: never Patient Tobacco Use Status: Never used Tobacco Substance Use Type: Marijuana Current occupational status: employed Current occupation: [employer])/ right hand dominant Review of Systems Const All systems reviewed & are unremarkable except as noted in HPI and below Physical Exam Vital Signs: BMI result Body Mass Index 31.7 Const General: cooperative, healthy appearing and no acute distress Resp Effort & Inspection: normal respiratory effort and able to speak in complete sentences Cardio Rate: regular rate Peripheral pulses: Peripheral pulses 2+ throughout Skin Lesions: no lesions Rashes: no rashes Extrem Other: Left elbow: Lacking about 10 degrees of full extension. Able to perform full flexion. Able to pronate and supinate to end range. NVI. Assessment & Plan Assessment & Plan (1) Fracture of radial head, left, closed: Code(s): S52.122A - Displaced fracture of head of left radius, initial encounter for closed fracture Category: Medical Plan Ms. Duque is a 23-year-old right-hand dominant female who presents to the office today for follow-up of a left radial head fracture. Date of injury was 08/2024 when she slipped and fell on ice landing on her left arm. At her last appointment on 09/02/2024 the patient was given a sling and instructed to attend occupational therapy. She has been attending occupational therapy and has noticed a great deal of improvement in her pain and range of motion. She is complaining of left wrist pain. While in the office today, we discussed continuation of occupational therapy and discontinuation of the sling use at this time. The patient should continue restrictions of no lifting pushing or pulling greater than a coffee cup or a cell phone. I would like to see her back in 4 weeks, sooner if needed. She will remain out of work until follow-up. In regards to the patient's left wrist an appointment will be made with our hand specialists for further evaluation and treatment. X-rays of the left elbow which were obtained while in the office today and were reviewed by me, Ellen Parada PA-C, revealed routine healing of left radial head fracture. Orders: Orders XR elbow LT min 3V Today M25.529 - Pain in unspecified elbow Coding Level of Care Code Global (45874) Diagnoses Fracture of radial head, left, closed S52.122A
[2024-10-01 14:37] VITALS: BMI 31.7
== END 2024-10-01 14:49 | disposition home or self-care (01) ==
LOC: HO.HOS 14:14
PROVIDERS: PCP Internal Medicine; Visit Provider Physician Assistant
DX: S52.122A Displaced fracture of head of left radius, initial encounter for closed fracture (principal)
CPT/HCPCS: 99213

== ENCOUNTER → 2024-10-01 14:17 | Outpatient (BNV) | payer OTHER, SELFPAY | PROVIDERS: Visit Provider Radiology Diagnostic Radiology | DX: S52.125A Nondisplaced fracture of head of left radius, initial encounter for closed fracture (principal) | CPT/HCPCS: 73080 ==

== ENCOUNTER 2024-10-08 14:36 | Outpatient (AMB) | payer OTHER, SELFPAY ==
--- NOTE | 2024-10-08 14:39 | A.OFFVIS_ITS ---
Vital Signs 10/08/24 14:43 Height 6 ft 1 in Handedness Right Intake Visit Reasons: New prob- Left wrist pain DOI 08/29/24 Intake Note: Marci is a 23 year old right hand dominant female who presents today for a follow up of her fracture of radial head, left DOI: 08/29/24. Patient started occupational therapy and states it is helping her slowly. She thinks she has something else going on in her left wrist because she can not even hold a water bottle. She states she has intermittent numbness and tingling at the tips of her left fingers. She states she had discoloration of her left hand yesterday all day and says the color has improved but is concerned. When she lets her arm rest out of the sling for a little she experiences an exacerbation of pain. Allergies No Known Allergies Allergy (Verified 10/08/24 14:47) HPI HPI New prob- Left wrist pain DOI 08/29/24: Details: Marci is a 23 year old right hand dominant female who presents today for a follow up of her fracture of radial head, left DOI: 08/29/24. Patient started occupational therapy and states it is helping her slowly. She thinks she has something else going on in her left wrist because she can not even hold a water bottle. She states she has intermittent numbness and tingling at the tips of her left fingers. She states she had discoloration of her left hand yesterday all day and says the color has improved but is concerned. When she lets her arm rest out of the sling for a little she experiences an exacerbation of pain. [facility] Medical History (Updated 10/08/24 @ 14:59 by FERMIN Castle) Fracture of radial head, left, closed No pertinent past medical history Social History Alcohol intake: never Patient Tobacco Use Status: Never used Tobacco Substance Use Type: Marijuana Current occupational status: employed Current occupation: Male [employer])/ right hand dominant Review of Systems Const All systems reviewed & are unremarkable except as noted in HPI and below Physical Exam Extrem Other: Patient is alert, oriented, and in no acute distress. Neuro: Normal sensation of the tips of all digits of the left hand at this time Vascular: Cap refill brisk Pain: No tenderness to anatomical snuffbox of the left wrist Significant tenderness to scaphoid tubercle of left wrist Tenderness to palpation over the volar left wrist ROM: Patient was able to make a closed fist and extend all digits of the left hand fully and without difficulty Patient is able to flex and extend the left wrist fully, but reports significant discomfort in the wrist and forearm when doing so Skin: No lacerations or abrasions. General: No ecchymosis, erythema, or evidence of infection. Psych: Appears grossly normal Affect normal Attitude cooperative Results Reviewed Results Reviewed: X-rays obtained in the office today and independently reviewed by me, Obi Tineo PA-C, demonstrate no radio evident fracture or acute bony abnormality. Assessment & Plan Assessment & Plan (1) Tenderness of anatomical snuffbox: Code(s): M79.643 - Pain in unspecified hand Category: Medical Plan 1. Scaphoid tubercle tenderness Status post fall Date of injury 08/29/24 Patient is educated about this condition Patient is educated about the typical treatment course At this time, due to the patient's continued tenderness of the scaphoid tubercle, MRI ordered to assess the health of the scaphoid in the other carpal bones of the left wrist Patient was also placed into a Velcro thumb spica splint to be worn like a cast except for bathing until after MRI Patient was amenable to this plan Will follow up after MRI for results review and discussion of further treatment options if indicated, sooner with any acute concerns Orders: Orders XR wrist LT w scaphoid Today M25.532 - Pain in left wrist MR wrist LT wo con Today M79.643 - Pain in unspecified hand Coding Level of Care Code Est Pt Level 3 (75960) Diagnoses Tenderness of anatomical snuffbox M79.643
== END 2024-10-08 15:55 | disposition home or self-care (01) ==
DX: M79.642 Pain in left hand (principal)
CPT/HCPCS: 99213

== ENCOUNTER 2024-10-08 14:36 | Outpatient (REF) | payer OTHER, SELFPAY ==
--- NOTE | ~2024-10-08 | XR_ITS ---
EXAMINATION: XR WRIST NAVICULAR LEFT HISTORY: M25.532 - Pain in left wrist COMPARISON: Comparison is made with the prior examination dated 08/29/2024. FINDINGS: Four views of the left wrist including scaphoid view are submitted. Osseous mineralization is normal. There is no fracture or dislocation. The joint spaces are preserved. The soft tissues are unremarkable. XR/XR wrist LT w scaphoid IMPRESSION: Unremarkable examination of the left wrist. Electronically signed by: Maciel Contreras MD 10/09/2024 08:52 AM EDT
== END 2024-10-08 14:37 | disposition home or self-care (01) ==
LOC: HO.HOSX 14:36
DX: M25.532 Pain in left wrist (principal)
CPT/HCPCS: 73110; 99212

== ENCOUNTER → 2024-10-08 15:25 | Outpatient (BNV) | payer OTHER, SELFPAY | PROVIDERS: Visit Provider Radiology Diagnostic Radiology | DX: M25.532 Pain in left wrist (principal) | CPT/HCPCS: 73110 ==

== ENCOUNTER 2024-10-29 13:26 | Outpatient (RCR) | payer OTHER, SELFPAY ==
--- NOTE | 2024-09-10 14:21 | MHC.OT.EP ---
[address] [phone] Occupational Therapy Plan of Care Patient Name: Marci Duque Date of Evaluation: 09/10/24 Diagnosis: Left radial head fracture Pain Location: Left elbow radiating to middle deltoid Constant ache Current: 6/10 Worst: 10/10 Pain Score: 6 Pain Scale Used: Numeric (0 - 10) Aggravating Factors: All UE movement Alleviating Factors: Pain mediation, ice Assessment: Marci is a 23 y/o female s/p slip and fall on the ice resulting in L radial head fracture with minimal displacement. Patient presents with severe pain (6/10 at rest, 9/10 with movement), limiting functional use of the affected upper extremity in activities of daily living ADL's/IADLs. Elbow and shoulder ROM is restricted, impacting self-care tasks such as dressing, bathing, and grooming. Patient demonstrates guarding behaviors due to pain, further restricting movement and functional participation. Strength testing deferred due to pain levels. Patient was educated on passive ROM exercises for the shoulder and elbow to prevent stiffness and promote mobility within a pain-free range. Pt will benefit from skilled OT services to focus on pain management, mobility yarsani, and gradual strengthening when appropriate. Frequency and Duration: The patient will be seen 2x/wk for 6 weeks Short Term Goals: Decrease L elbow pain >4/10 at rest through education on positioning, pain management strategies Increase passive elbow flexion and extension by 10-15 degrees Improve shoulder mobility by at least 20 degrees Perform modified ADLs with minimal assistance [employer] Goals: Pain free with ADL's/IADL's Restore full active elbow ROM within functional limits Improve shoulder mobility and strength to enable independent performance of ADLs/IADL Improve L telecommunication equipment repairer strength >40# IND with progressive HEP Treatment Plan: Therapeutic Exercise Therapeutic Activity Home Exercise Program Patient Education Edema Control ADL Training MHP Cold Packs Joint Mobilization Soft Tissue Mobilization Kinesiotaping 2x/wk for 6 weeks Electronically Signed By: Varsha Herring MS OTR/L Please Sign and return to therapist. Thank you once again for your referral.
--- NOTE | 2025-02-05 09:06 | MHC.OT.DC ---
[address] [phone] F: [phone] Occupational Therapy Discharge Note Patient Name: Marci Duque Provider: Ellen Parada Diagnosis: Left radial head fracture Date of Evaluation: 09/10/24 Date of Discharge: Last seen 11/01/24 Treatments to Date: 12 Discharge Status: Improved Function Independent with HEP Patient Elected to Stop Discharge Summary: Pt progressed very well with treatment of left radial head fracture. Elbow range was WNL's. Hand and wrist function was improving, pt did have MRI on left wrist. Per MD report: There is no fracture, specifically no scaphoid fracture. Only very scant edema in the lunate. Pt was IND with HEP, although she did not follow up with future appointments. At this time, pt is being discharged from OT services. Thank you for this referral. Electronically Signed By: Varsha Herring MS OTR/L Reviewed/agree with student documentation: Therapist: Please Sign and return to therapist, thank you for your referral.
== END 2025-02-05 09:08 | disposition home or self-care (01) ==
LOC: HO.OTS 13:26
PROVIDERS: PCP Internal Medicine; Visit Provider Physician Assistant
DX: S52.122D Displaced fracture of head of left radius, subsequent encounter for closed fracture with routine healing (principal)
CPT/HCPCS: 97110; 97140; 97165

== ENCOUNTER → 2024-11-01 16:44 | Outpatient (BNV) | payer OTHER, SELFPAY | PROVIDERS: PCP Internal Medicine; Visit Provider Radiology Diagnostic Radiology | DX: M67.432 Ganglion, left wrist (principal) | CPT/HCPCS: 73221 ==

== ENCOUNTER 2024-11-01 16:49 | Outpatient (REF) | payer OTHER, SELFPAY ==
--- NOTE | ~2024-11-01 | MR_ITS ---
CLINICAL HISTORY: M79.643 - Pain in unspecified hand --- Additional Notes or Special Instructions: ? scaphoid fx MR left wrist without gadolinium Comparison: DX/VA/SR - XR WRIST LT W SCAPHOID - 10/08/24 15:25 EDT Findings: There is mildly heterogeneous and slightly increased T2 marrow signal within the lunate of uncertain significance. No effusion. There is a small ganglion cyst just superficial to the radio scapholunate ligament at the level of the scaphoid. Flexor and extensor tendons are intact. No triangular fibrocartilage complex tears. The flexor retinaculum is intact. Unremarkable median and ulnar nerves. IMPRESSION: 1. There is a small ganglion cyst just superficial to the radio scapholunate ligament at the level of the scaphoid. 2. There is mildly heterogeneous and slightly increased T2 marrow signal within the lunate of uncertain significance. Findings could represent mild marrow edema. Developing Keinbocks disease is not excluded though typically one would see more significant marrow edema This document has been electronically signed by: Thor Branch MD on 11/02/2024 10:59:50
== END 2024-11-01 16:50 | disposition home or self-care (01) ==
LOC: HO.MRI 16:49
PROVIDERS: PCP Internal Medicine
DX: M79.642 Pain in left hand (principal)
CPT/HCPCS: 73221

== ENCOUNTER 2024-11-13 13:37 | Outpatient (AMB) | payer OTHER, SELFPAY ==
[2024-11-13 14:05] VITALS: BMI 31.7
--- NOTE | 2024-11-13 14:05 | MHC.OFFVIS ---
Vital Signs 11/13/24 14:05 Height 6 ft 1 in Weight 240 lb BMI 31.7 Intake Visit Reasons: OV- L wrist MRI review, ? early Kienbock's disease Intake Note: Marci 23 yr old female presents today for her left MRI review to rule out early Kienbock's disease. IMPRESSION: 1. There is a small ganglion cyst just superficial to the radio scapholunate ligament at the level of the scaphoid. 2. There is mildly heterogeneous and slightly increased T2 marrow signal within the lunate of uncertain significance. Findings could represent mild marrow edema. Developing Keinbocks disease is not excluded though typically one would see more significant marrow edema Allergies No Known Allergies Allergy (Verified 11/13/24 14:09) HPI HPI OV- L wrist MRI review, ? early Kienbock's disease: Details: Marci Weller) is a 23 year old right hand dominant woman who presents for an MRI review of her left wrist pain which began following a fall onto her outstretched hand on 08/29/2024. Obi Tineo found that she had tenderness in the scaphoid tubercle and order the MRI to rule out a scaphoid fracture.. She complains of pain in her left wrist, along with weakness. She says she was not able to hold a water bottle at times. She says her pain has mostly improved, she mostly feels it with heavy lifting/carrying, or when using her hand to push herself off the ground. She has a Hx of a left radial head fracture, DOI: 08/29/24. This was managed non-operatively. She has attended OT hand therapy and found this helpful. This is being managed by FERMIN Hughes. 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 Review of Systems Const All systems reviewed & are unremarkable except as noted in HPI and below Physical Exam Vital Signs: BMI result Body Mass Index 31.7 Const General: cooperative, healthy appearing and no acute distress Orientation/consciousness: patient oriented x3 HEENT Head: Yes normocephalic and Yes atraumatic Eyes EOM: EOMs intact bilaterally Resp Effort & Inspection: normal respiratory effort and able to speak in complete sentences Cardio Jugular venous distension: no JVD Skin General skin exam: turgor normal Rashes: no rashes Neuro General: patient oriented x3 Extrem Other: Evaluation of Left Upper Extremity: The patient is alert, oriented, and in no acute distress Neuro: Median, Ulnar, Radial nerves motor and sensory intact and sensation is normal to the tips of all digits Vascular: Cap refill brisk ROM: She can make a tight fist with good strength and no pain Full pronosupination without pain No locking or catching Skin: No lacerations or abrasions. General: No Ecchymosis. No Erythema or evidence of infection. TTP over scaphoid tubercle again today MRI: IMPRESSION: 1. There is a small ganglion cyst just superficial to the radio scapholunate ligament at the level of the scaphoid. 2. There is mildly heterogeneous and slightly increased T2 marrow signal within the lunate of uncertain significance. Findings could represent mild marrow edema. Developing Keinbocks disease is not excluded though typically one would see more significant marrow edema This document has been electronically signed by: Thor Branch MD on 11/02/2024 Dr. Liz Addendum: I also reviewed the MRI and report today in clinic. There is no fracture, specifically no scaphoid fracture. Only very scant edema in the lunate. Not indicative of Kienbock's disease at this time. Psych Appearance: grossly normal Affect: normal affect Attitude: cooperative Assessment & Plan Assessment & Plan (1) Fracture of radial head, left, closed: Code(s): S52.122A - Displaced fracture of head of left radius, initial encounter for closed fracture Category: Medical (2) Tenderness of anatomical snuffbox: Code(s): M79.643 - Pain in unspecified hand Category: Medical Plan Assessment & Plan: 1. Left wrist pain at scaphoid tubercle No evidence of scaphoid fracture on MRI No evidence of Kienbock's disease on MRI 2. Left radial head fracture, S/P fall DOI: 08/29/24 This was managed non-operatively by ortho I educated her about these conditions, and reviewed her MRI results with her I recommend activity modification, and she is in agreement She is able to engage in all normal daily activities at this time, as tolerated She should work on ROM exercises at home, and continue with OT hand therapy per OT recommendations She can follow up prn Scribed for Rossy Liz MD by Feroz Finnegan, director medical safety, on 11/13/24 at 2:40 PM, EST. Coding Level of Care Code Est Pt Level 4 (13014) Diagnoses Fracture of radial head, left, closed S52.122A Tenderness of anatomical snuffbox M79.643
== END 2024-11-13 14:46 | disposition home or self-care (01) ==
LOC: HO.HOS 13:37
PROVIDERS: PCP Internal Medicine; Visit Provider Orthopaedic Surgery
DX: S52.122A Displaced fracture of head of left radius, initial encounter for closed fracture (principal); M79.642 Pain in left hand
CPT/HCPCS: 99214

== ENCOUNTER → 2024-11-13 13:37 | Outpatient (BNVA) | payer OTHER, SELFPAY | PROVIDERS: PCP Internal Medicine; Visit Provider Orthopaedic Surgery | DX: S52.122D Displaced fracture of head of left radius, subsequent encounter for closed fracture with routine healing (principal) | CPT/HCPCS: 99212 ==